=== PATIENT | male | born 1955 | race African-American/Black ===

== ENCOUNTER 2021-05-09 05:17 | Emergency (ER) | payer MEDICARE ==
[2021-05-09 06:21] LABS: BASOPHIL 1.9 % (0-2); EOSINOPHIL 4.1 % (0-7); HCT 37.3 % (42.0-52.0); HGB 11.6 g/dl (13.2-18.0); LYMPHOCYTE 36.4 % (15-48); MCH 27.6 pg (25.0-31.0); MCHC 31.1 g/dL (32.0-36.0); MCV 88.8 fL (78.0-100.0); MONOCYTE 8.5 % (0-12); MPV 9.9 fL (6.0-9.5); NEUTROPHIL 48.8 % (41-80); NRBC 0; PLT 181 K/uL (150-400); RDW 12.9 % (11.5-14.0); WBC 3.2 K/uL (4.0-10.5)
[2021-05-09 06:48] LABS: ALBUMIN 3.5 g/dL (3.4-5.0); BILIRUBIN - TOTAL 0.3 mg/dL (0.2-1.0); BUN/CREAT RATIO (CALC) 17.3 RATIO; CREATININE 1.04 mg/dL (0.67-1.17); GLOBULIN (CALCULATION) 3.4 g/dL; POTASSIUM 3.6 mmol/L (3.5-5.1); TOTAL PROTEIN 6.9 g/dL (6.4-8.2)
[2021-05-09 08:20] LABS: BILIRUBIN NEGATIVE (NEGATIVE); BLOOD NEGATIVE Ery/uL (NEGATIVE); CLARITY CLEAR (CLEAR); COLOR YELLOW (YELLOW); GLUCOSE (U) NORMAL (NORMAL); LEUKOCYTES NEGATIVE Leu/uL (NEGATIVE); NITRITE NEGATIVE (NEGATIVE); PROTEIN NEGATIVE (NEGATIVE); UROBILINOGEN 0.2 mg/dL (0.2-1.0)
[2021-05-09 08:23] LABS: AMPHETAMINES NEGATIVE (NEGATIVE); BARBITURATES NEGATIVE (NEGATIVE); ECSTASY (MDMA) NEGATIVE (NEGATIVE); MARIJUANA (THC) NEGATIVE (NEGATIVE); METHADONE NEGATIVE (NEGATIVE); OPIATES NEGATIVE (NEGATIVE); OXYCODONE NEGATIVE (NEGATIVE)
== END 2021-05-09 11:00 | disposition other institution (70) ==
LOC: FER 05:17
PROVIDERS: Emergency Medicine
DX: I63.9 Cerebral infarction, unspecified (principal); G31.9 Degenerative disease of nervous system, unspecified; Z20.822 Contact with and (suspected) exposure to COVID-19; I10 Essential (primary) hypertension; K21.9 Gastro-esophageal reflux disease without esophagitis
CPT/HCPCS: 36415; 70450; 71045; 80053; 80305; 81003; 82465; 83036; 84443; 84484; 85025; 93005; J3490; J7030; U0002

== ENCOUNTER 2021-11-08 16:49 | Emergency (ER) | payer MEDICARE ==
[~2021-11-08 16:49] MED LIST: GLUCAGON EMERGEN1 MG IM; SEROQUEL 25MG T25 MG PO
[2021-11-08 18:09] LABS: EOSINOPHIL 4.4 % (0-7); HGB 11.2 g/dl (13.2-18.0); MCH 27.5 pg (25.0-31.0); MCHC 31.1 g/dL (32.0-36.0); MCV 88.5 fL (78.0-100.0); MONOCYTE 8.5 % (0-12); MPV 10.1 fL (6.0-9.5); NEUTROPHIL 64.9 % (41-80); NRBC 0; PLT 189 K/uL (150-400); RBC 4.07 M/uL (4.70-6.00)
[2021-11-08 18:27] LABS: ALBUMIN 3.7 g/dL (3.4-5.0); BILIRUBIN - TOTAL 0.5 mg/dL (0.2-1.0); BUN/CREAT RATIO (CALC) 17.6 RATIO; CREATININE 1.02 mg/dL (0.67-1.17); GLOBULIN (CALCULATION) 3.3 g/dL; POTASSIUM 3.8 mmol/L (3.5-5.1)
[2021-11-08] MEDS ORDERED: LASIX20 MG PO (19:07)
[2021-11-08] MEDS ORDERED: UROCIT-K10 MEQ PO (19:07)
== END 2021-11-08 19:25 | disposition home or self-care (01) ==
LOC: FER 16:49
PROVIDERS: Nurse Practitioner Family
DX: R60.0 Localized edema (principal); I10 Essential (primary) hypertension; F03.90 Unspecified dementia, unspecified severity, without behavioral disturbance, psychotic disturbance, mood disturbance, and anxiety
CPT/HCPCS: 36415; 71045; 80053; 83880; 85025; 93005

== ENCOUNTER 2021-11-30 15:44 | Emergency (ER) | payer MEDICARE ==
[~2021-11-30 15:44] MED LIST changes: +LASIX20 MG PO; +UROCIT-K10 MEQ PO
[2021-11-30 16:56] LABS: BASOPHIL 0.7 % (0-2); EOSINOPHIL 2.7 % (0-7); HCT 39.1 % (42.0-52.0); HGB 12.4 g/dl (13.2-18.0); LYMPHOCYTE 15.5 % (15-48); MCH 28.1 pg (25.0-31.0); MCHC 31.7 g/dL (32.0-36.0); MCV 88.5 fL (78.0-100.0); MONOCYTE 5.3 % (0-12); MPV 9.2 fL (6.0-9.5); NEUTROPHIL 75.7 % (41-80); NRBC 0; PLT 232 K/uL (150-400); RBC 4.42 M/uL (4.70-6.00); RDW 12.6 % (11.5-14.0); WBC 6.7 K/uL (4.0-10.5)
[2021-11-30 17:04] LABS: INR 1.17 (0.9-1.2); PROTHROMBIN TIME 14.3 SECONDS (11.8-13.4); PTT 30.6 SECONDS (24.4-34.7)
[2021-11-30 17:16] LABS: IRON % SATURATION 28.2 %SAT (20-50)
[2021-11-30 17:20] LABS: ALBUMIN 3.7 g/dL (3.4-5.0); ALKALINE PHOSHATASE 63 U/L (46-116); ALT 31 U/L (16-63); AST 27 U/L (15-37); BILIRUBIN - TOTAL 0.7 mg/dL (0.2-1.0); BUN 19 mg/dL (7-18); BUN/CREAT RATIO (CALC) 19.4 RATIO; CHLORIDE 105 mmol/L (98-107); CO2 (BICARBONATE) 29 mmol/L (21-32); CREATININE 0.98 mg/dL (0.67-1.17); GLUCOSE 91 mg/dL (74-106); LIPASE 77 U/L (73-393); TOTAL PROTEIN 7.7 g/dL (6.4-8.2)
[2021-11-30 18:31] LABS: BILIRUBIN NEGATIVE (NEGATIVE); BLOOD NEGATIVE Ery/uL (NEGATIVE); CLARITY CLEAR (CLEAR); COLOR YELLOW (YELLOW); GLUCOSE (U) NORMAL (NORMAL); LEUKOCYTES NEGATIVE Leu/uL (NEGATIVE); NITRITE NEGATIVE (NEGATIVE); PROTEIN NEGATIVE (NEGATIVE)
[2021-11-30 18:34] LABS: AMPHETAMINES NEGATIVE (NEGATIVE); BARBITURATES NEGATIVE (NEGATIVE); ECSTASY (MDMA) NEGATIVE (NEGATIVE); MARIJUANA (THC) NEGATIVE (NEGATIVE); METHADONE NEGATIVE (NEGATIVE); OPIATES NEGATIVE (NEGATIVE); OXYCODONE NEGATIVE (NEGATIVE)
== END 2021-11-30 22:15 | disposition home or self-care (01) ==
LOC: FER 15:44
PROVIDERS: Emergency Medicine
DX: R56.9 Unspecified convulsions (principal); D64.9 Anemia, unspecified; F03.90 Unspecified dementia, unspecified severity, without behavioral disturbance, psychotic disturbance, mood disturbance, and anxiety; I10 Essential (primary) hypertension
CPT/HCPCS: 36415; 70450; 71045; 80053; 80305; 81003; 83540; 83550; 83605; 83690; 83735; 84145; 84439; 84443; 84484; 85025; 85610; 85730; 93005; G0480; J7030

== ENCOUNTER 2021-12-26 01:05 | Day surgery (SDCO) | payer MEDICARE ==
[2021-12-26 01:31] LABS: BASOPHIL 0.1 % (0-2); EOSINOPHIL 0 % (0-7); HCT 39.6 % (42.0-52.0); HGB 11.7 g/dl (13.2-18.0); LYMPHOCYTE 4.8 % (15-48); MCHC 29.5 g/dL (32.0-36.0); MCV 91.2 fL (78.0-100.0); MONOCYTE 2.3 % (0-12); MPV 9.8 fL (6.0-9.5); NRBC 0; PLT 532 K/uL (150-400); RBC 4.34 M/uL (4.70-6.00); RDW 12.6 % (11.5-14.0); WBC 9.1 K/uL (4.0-10.5)
[2021-12-26 01:46] LABS: NEUTROPHIL 92.5 % (41-80)
[2021-12-26 01:52] LABS: ALBUMIN 2.1 g/dL (3.4-5.0); BILIRUBIN - TOTAL 0.3 mg/dL (0.2-1.0); BUN/CREAT RATIO (CALC) 30.1 RATIO; CREATININE 1.13 mg/dL (0.67-1.17); GLOBULIN (CALCULATION) 6.6 g/dL; POTASSIUM 3.1 mmol/L (3.5-5.1); TOTAL PROTEIN 8.7 g/dL (6.4-8.2)
[2021-12-26 01:59] LABS: LACTIC ACID 5.3 mmol/L (0.4-1.9)
[2021-12-26 02:55] LABS: CORONAVIRUS 2019 SARS-COV-2 NEGATIVE (NEGATIVE); INFLUENZA A NAA NEGATIVE (NEGATIVE)
== END 2021-12-30 13:30 | disposition expired ==
LOC: FER 01:05 → FICU 05:13 → FMS 05:13
PROVIDERS: Internal Medicine; ADMIT Internal Medicine
DX: J69.0 Pneumonitis due to inhalation of food and vomit (principal); R65.20 Severe sepsis without septic shock; J96.01 Acute respiratory failure with hypoxia; E87.2 Acidosis; G93.41 Metabolic encephalopathy; E87.0 Hyperosmolality and hypernatremia; E87.6 Hypokalemia; E43 Unspecified severe protein-calorie malnutrition; G30.9 Alzheimer's disease, unspecified; F02.80 Dementia in other diseases classified elsewhere, unspecified severity, without behavioral disturbance, psychotic disturbance, mood disturbance, and anxiety; I10 Essential (primary) hypertension; Z93.1 Gastrostomy status; Z20.822 Contact with and (suspected) exposure to COVID-19
CPT/HCPCS: 36415; 36600; 71045; 80053; 82803; 83605; 83880; 84145; 85025; 87040; G0378; J2543; J3010; J3475; J3480; J7030; J7050; U0002